=== PATIENT | male | born 1990 | race Caucasian/White ===

== ENCOUNTER 2025-05-29 09:09 | Emergency (ER) | payer BC, SELFPAY ==
--- NOTE | 2025-05-29 09:16 | ED.URI ---
HPI - URI/Sore Throat General Chief Complaint: Upper Respiratory Infection Stated Complaint: Cough Time Seen by Provider: 05/29/25 09:25 Source: patient and RN notes reviewed Mode of arrival: ambulatory Limitations: no limitations History of Present Illness HPI Narrative: 34-year-old male presents concern for nasal congestion, drainage, postnasal drainage, sore throat, cough that started yesterday. Denies fever, body aches, chills, sweats. Tried Sudafed and DayQuil. MD elicited complaint: cough and sore throat Related Data Home Medications ?Medication ?Instructions ?Recorded ?Confirmed ?Last Taken ?Type aripiprazole 2 mg tablet mg 05/29/25 Unknown History escitalopram oxalate 5 mg tablet mg 05/29/25 Unknown History rosuvastatin 10 mg tablet mg 05/29/25 Unknown History semaglutide 2 mg/dose (8 mg/3 mL) mg subcut 05/29/25 Unknown History subcutaneous pen injector (Ozempic) Allergies Allergy/AdvReac Type Severity Reaction Status Date / Time No Known Allergies Allergy Verified 05/29/25 09:13 Review of Systems Review of Systems: CONSTITUTIONAL: Denies malaise, chills, sweats, or fever. EYES: Denies visual changes, redness, or discharge. ENT: Reports rhinorrhea, congestion, and sore throat. CARDIOVASCULAR: Denies chest pain, palpitations, or edema. RESPIRATORY: Reports cough. Denies dyspnea. GASTROINTESTINAL: Denies abdominal pain, nausea, vomiting, diarrhea SKIN: Denies rash or itching. MUSCULOSKELETAL: Denies myalgia. NEUROLOGIC: Denies headache. All systems reviewed & are unremarkable except as noted in HPI and below PMFSH Comments At time of signature, agree with nursing past medical, surgical, social and family history. There is no relevant family history pertinent to the presenting complaint Exam Narrative: GENERAL: Well-appearing, well-nourished, and in no acute distress. HEAD: Normocephalic EYES: PERRLA, conjunctivae clear ENT: Nares clear, turbinates edematous and erythematous, clear discharge. Mucous membranes moist. TM pearly grace with dull light reflex bilaterally; no tragal tenderness. Oropharynx not erythematous without lesions. Tonsils not enlarged and without exudate, no drooling, no hoarseness, no trismus, uvula midline. NECK: Supple. No lymphadenopathy CHEST: Clear to auscultation, breath sounds equal. No wheezing, rhonchi, rales, or stridor. No respiratory distress, speaks in full sentences. HEART: Regular rate and rhythm. No murmur heard. SKIN: Warm, dry, no rash. NEURO: Alert and oriented x3. PSYCH: Normal mood and affect Course Course Level of Care: [facility] Visit MDM Differential Diagnosis Differential Diagnosis: I evaluated this patient in the [facility]. History is obtained from patient who is an independent historian and physical exam was performed.? Available medical records were reviewed. ? Exam findings and relevant testing show no acute concerns or changes; patient is non-toxic appearing and is in no distress. ? Differential diagnosis considered: Orozco virus, strep pharyngitis, allergic rhinitis, upper respiratory tract infection, sinusitis, rhinosinusitis, nasopharyngitis. viral pharyngitis, otitis media, otitis externa, pneumonia, bronchitis, viral cough syndrome, viral syndrome, and influenza. Differential diagnosis and treatment plan were discussed with the patient. Patient agrees with discussion and after shared medical decision making agrees with plan of care. All questions were answered to the patient's satisfaction. Patient is appropriate for outpatient treatment and follow-up. Discharge Plan Discharge Clinical Impression: Upper respiratory infection Patient Disposition: Home Condition: Stable Instructions: Upper Respiratory Infection (ED) Additional Instructions: Your rapid strep swab was negative today at [facility]. A throat culture will be sent to the laboratory for further testing. If the test is positive, you will receive a phone call within 48 hours and an appropriate antibiotic will be initiated at that time. Your symptoms are likely due to a viral illness, which is not treated with antibiotics. Viral symptoms can be present for up to a few weeks. -Alternate Tylenol and Motrin per package directions for fever or pain. -Antihistamine medication such as Benadryl at night and Zyrtec during the day can help improve symptoms. -Eat and drink things that are easy to swallow, like tea or soup, or popsicles to suck on. -Oral rinses such as: Salt water gargles and/or may use topical anesthetic (eg. Chloraseptic spray) or lozenges to relieve dryness or throat pain). -Frequent hand washing or hand group billing coordinator is one of the best ways to prevent spread of infection. -Follow up with primary care provider in 2-3 days if condition is not improving; or seek ER visit if you have trouble breathing, cannot drink enough fluids, have muffled voice, difficulty opening your mouth, or severe swelling. Patient Language: Bengali Prescriptions: New ipratropium bromide 21 mcg (0.03 %) spray,non-aerosol 2 spray NASAL TID PRN (Reason: nasal drainage) Qty: 30 0RF Rx Instructions: administer into each nostril No Action rosuvastatin 10 mg tablet escitalopram oxalate 5 mg tablet aripiprazole 2 mg tablet Ozempic 2 mg/dose (8 mg/3 mL) pen injector SUBCUT Follow-up/Referrals: Court,Yani Gonzalez APRN [Primary Care Provider, [facility]] Time of Disposition: 09:40
[2025-05-29 09:20] VITALS: BP 145/83; PULSE 99; RESP 18; TEMP 36.7; O2SAT 98
[2025-05-29 09:35] LABS: EDSTREPNEGPOS1 Negative (Negative)
--- OUTSIDE RECORDS SUMMARY | 2025-05-29 09:57 | XMS_ITS | Encounter Summary ---
Author Organization [facility] Address [facility] [place] [address] Care Team Providers Care Field Service Consultant Name Role Phone Ashanti Miller BERRY PICKER MACHINE OPERATOR Primary Care Provider Yoselin Morocho MD Primary Care Provider [phone] Yani Yun NP Primary Care Provider [phone] Encounter Details Date Type Department Care Team (Late st Contact Info) Description 01/28/2021 MyCYaphiet Message Enc [facility] Medical Group Family & Internal Medicine [facility] [id number] [place] [address] Ashanti Miller, GROVER RE: Medication Questions Social History Tobacco Use Types Packs/Day Years Used Date Smoking Tobacco: Every Day Cigarettes 0.5 17.9 Started: 2007 Smokeless Tobacco: Never Alcohol Use Standard Drinks/Week Comments Yes 0 (1 standard drink = 0.6 oz pur e alcohol) drinks 1-2 times weekly PHQ-2 Answer Date Recorded PHQ-2 Score - If the patient scores above 3, please move on to questions 3-9 0 12/03/2020 Sex and Gender Information Value Date Recorded Sex Assigned at Male 07/05/2023 8:44 AM PRACTICE NURSE Legal Sex Male 12:11 PM CDT Gender Identity Not on file Sexual Orientation Straight 06/07/2021 1: 16 PM PRACTICE NURSE documented as of this encounter Progress Notes * Estrella Colón RN - 01/28/2021 8:18 AM CDT Please advise. documented in this encounter Plan of Treatment Not on file documented as of this encounter Visit Diagnoses Not on filedocumented in this encounter Additional Health Concerns Assessment Noted Time PHQ-9 Depression Total Score: 0 12/04/19 3:37 PM CDT documented as of this encounter Care Teams Field Service Consultant Relationship Specialty Start Date End Date Ashanti Miller NP PCP - General NURSE PRACTITIONER 11/27/20 04/19/21 [place] [id number] [place] [address] PCP - General FAMILY PRACTICE 04/20/21 08/24/23 [place] [address] [address] [address] PCP - General Nurse Practitioner Family 08/25/23 documented as of this encounter
--- OUTSIDE RECORDS SUMMARY | 2025-05-29 09:57 | XMS_ITS | Encounter Summary ---
Author Organization [facility] Address [facility] [place] [address] Care Team Providers Care Supervisor Poultry Hatchery Name Role Phone Yoselin Pal MD Primary Care Provider [phone] Yani Yun NP Primary Care Provider [phone] Encounter Details Date Type Department Care Team (Late st Contact Info) Description 08/06/2023 CityVoz Message Enc [facility] Medical Group Family & Internal Medicine [facility] [id number] [place] [address] [place] [id number] [place] [address] [place] [address] CGM Social History Tobacco Use Types Packs/Day Years Used Date Smoking Tobacco: Former Cigarettes 2 008 - 07/08/2022 Smokeless Tobacco: Never Alcohol Use Standard Drinks/Week Comments Not Currently 3.3 (1 standard drink = 0.6 oz p ure alcohol) occasionally [facility] Utilities Answer Date Recorded In the past 12 months has e electric, gas, oil, or water company threatened to shut off services in your home? No 07/07/2023 Humiliation, Afraid, Rape, and Kick questionnair e Answer Date Recorded Within the last year, have y ou been afraid of your partner or ex-partner? No 07/07/2023 Within the last year, have y ou been humiliated or emotionally abused in other ways by your partner or ex-partner? No Within the last year, have y ou been kicked, hit, slapped, or otherwise physically hurt by your partner or ex-partner? No 07/07/2023 Within the last year, have y ou been raped or forced to have any kind of sexual activity by your partner or ex-partner? No 07/07/2023 Social Connection and Isolation Panel Answer Date Recorded In a typical week, how many times do you talk on the phone with family, friends, or neighbors? More than three times a week 07/07/2023 How often do you get togethe r with friends or relatives? Three times a week 07/07/2023 How often do you attend chur ch or judaism services? Never 07/07/2023 Do you belong to any clubs o r organizations such as hindu groups, unions, fraternal or athletic groups, or school groups? No 07/07/2023 How often do you attend meet ings of the clubs or organizations you belong to? Never 07/07/2023 Are you , , di vorced, , never , or living with a partner? 07/07/2023 AUDIT-C Answer Date Recorded Q1: How often do you have a drink containing alc ohol? 2-4 times a month 07/07/2023 Q2: How many drinks containi ng alcohol do you have on a typical day when you are drinking? 5 or 6 07/07/2023 Q3: How often do you have si x or more drinks on one occasion? Less than monthly 07/07/2023 Overall Financial Resource Strain (CARDIA) Answe r Date Recorded How hard is it for you to pa y for the very basics like food, housing, medical care, and heating? Not hard at all 07/07/2023 PHQ-2 Answer Date Recorded Patient Health Questionnaire-2 Score 0 07/07/2023 [facility] Occupational Stress Questionnaire Answer Date Recorded Do you feel stress - tense, restless, nervous, or anxious, or unable to sleep at night because your mind is troubled all the time - these days? Not at all 07/07/2023 Exercise Vital Sign Answer Date Recorde d On average, how many days pe r week do you engage in moderate to strenuous exercise (like a brisk walk)? 7 days 07/07/2023 On average, how many minutes do you engage in exercise at this level? 30 min 07/07/2023 Hunger Vital Sign Answer Date Recorded Within the past 12 months, y ou worried that your food would run out before you got the money to buy more. Never true 07/07/19 24 Within the past 12 months, t he food you bought just didn't last and you didn't have money to get more. Never true 07/07/2023 PRAPARE - Transportation Answer Date Re corded In the past 12 months, has l ack of transportation kept you from medical appointments or from getting medications? No 06/27 In the past 12 months, has l ack of transportation kept you from meetings, work, or from getting things needed for daily living? No 07/07/2023 Housing Stability Vital Sign Answer Ramon e Recorded In the last 12 months, was t here a time when you were not able to pay the mortgage or rent on time? No 07/07/2023 In the last 12 months, how many places have you lived? 1 07/07/2023 In the last 12 months, was t here a time when you did not have a steady place to sleep or slept in a senior care (including now)? 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 Answer Date of Assessment Author Status No 07/07/2023 4:23 PM TEAMCENTER CONSULTANT Pina Kumar RN Active * Do you have serious difficulty walking or climbing stairs? Answer Date of Assessment Author Status Yes 07/07/2023 4:23 PM TEAMCENTER CONSULTANT Pina Kumar RN Active * Do you have difficulty dressing or bathing? Answer Date of Assessment Author Status No 07/07/2023 4:23 PM TEAMCENTER CONSULTANT Pina Kumar RN Active * Because of a physical, mental, or emotional condition, do you have difficulty doing errands alone such as visiting a doctor's office or shopping? Answer Date of Assessment Author Status No 07/07/2023 4:23 PM TEAMCENTER CONSULTANT Pina Kumar RN Active documented as of this encounter Mental Status * Because of a physical, mental, or emotional condition, do you have serious difficulty concentrating, remembering, or making decisions? Answer Entry Date Author Status No 07/07/2023 4:23 PM TEAMCENTER CONSULTANT Pina Kumar RN Active documented in this encounter Progress Notes * Yani Yun NP - 08/08/2023 4:52 PM CST I will send an order now! CGM's are great to help with management. CENTER CONSULTANT documented in this encounter Plan of Treatment Not on file documented as of this encounter Visit Diagnoses Diagnosis Type 2 diabetes mellitus with hyperglycemia, unspecified whether [place] [facility] use ([facility])- Primary documented in this encounter Additional Health Concerns Assessment Noted Time PHQ-9 Depression Total Score: 0 12/04/19 21 3:37 PM CDT documented as of this encounter Care Teams Supervisor Poultry Hatchery Relationship Specialty [place] [address] [place] [address] PCP - General FAMILY PRACTICE 04/20/21 08/24/23 [place] [address] [address] [address] PCP - General Nurse Practitioner Family 08/25/23 documented as of this encounter
--- OUTSIDE RECORDS SUMMARY | 2025-05-29 09:57 | XMS_ITS | Encounter Summary ---
Author Organization [facility] Address [facility], [id number] [place] [address] Care Team Providers Care Radio Operator Name Role Phone Ashanti Miller SAP GATHERER Primary Care Provider Yoselin Morocho MD Primary Care Provider [phone] Yani Yun NP Primary Care Provider [phone] Encounter Details Date Type Department Care Team (Late st Contact Info) Description 01/20/2021 PT PALt Message Enc [facility] Medical Group Family & Internal Medicine [address] [address] Ashanti Miller, GR[place] RE: Medication Questions [...] Sex Assigned at Male 07/05/2023 8:44 AM PROPERTY MANAGEMENT COORDINATOR Legal Sex Male 12:11 PM CDT Gender Identity Not on file Sexual Orientation Straight 06/07/2021 1: 16 PM PROPERTY MANAGEMENT COORDINATOR COVID-19 Exposure Response Date Recorded In the last month, have you been in contact with someone who was confirmed or suspected to have Coronavirus / COVID-19? No / Unsure 12/26/2020 7:54 AM CDT documented as of this encounter Plan of Treatment Not on file documented as of this encounter Visit Diagnoses Not on filedocumented in this encounter Additional Health Concerns Assessment Noted Time PHQ-9 Depression Total Score: 0 12/04/19 21 3:37 PM CDT documented as of this encounter Care Teams Radio Operator Relationship Specialty Start Date End Date Ashanti Miller NP PCP - General NURSE PRACTITIONER 11/27/20 04/19/21 [place] [address] [place] [address] PCP - General FAMILY PRACTICE 04/20/21 08/24/23 [place] [address] [place] [address] PCP - General Nurse Practitioner Family 08/25/23 documented as of this encounter
--- OUTSIDE RECORDS SUMMARY | 2025-05-29 09:57 | XMS_ITS | Encounter Summary ---
Author Organization [facility] Address [facility] [place] [address] Care Team Providers Care Sheet Metal Superintendent Name Role Phone Yani Yun NP Primary Care Provider [phone] Encounter Details Date Type Department Care Team (Late st Contact Info) Description 09/13/2024 BlueStacks Message Enc [facility] Medical Group Family & Internal Medicine [facility] [address] [place] [address] [place] [address] [facility] [address] [address] Tests Social History Tobacco Use Types Packs/Day Years Used Date Smoking Tobacco: Former Cigarettes 2 008 - 07/08/2022 Smokeless Tobacco: Never Alcohol Use Standard Drinks/Week Comments Never 0 (1 standard drink = 0.6 oz pur e alcohol) occasionally [facility] Utilities Answer Date Recorded In the past 12 months has [employer], gas, oil, or water [employer] threatened to shut off services in your [...] 07/07/2023 How often do you attend chur or sabianist services? Never 07/07/2023 Do you belong to any clubs o r organizations such as mormon groups, unions, fraternal or athletic groups, or [...] Date Recorded Patient Health Questionnaire-2 Score 0 09/05/2024 [facility] - Occupational Stress Questionnaire Answer [...] place to sleep or slept in a chcf (including now)? 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 Answer Date of Assessment Author Status No 07/07/2023 4:23 PM Pina Miranda RN Active * Do you have serious difficulty walking or climbing stairs? Answer Date of Assessment Author Status Yes 07/07/2023 4:23 PM Pina Miranda RN Active * Do you have difficulty dressing or bathing? Answer Date of Assessment Author Status No 07/07/2023 4:23 PM LUMBER STICKER Zobrist, Pina L, RN Active * Because of a physical, mental, or emotional condition, do you have difficulty doing errands alone such as visiting a doctor's office or shopping? Answer Date of Assessment Author Status No 07/07/2023 4:23 PM Pina Miranda RN Active documented as of this encounter Mental Status * Because of a physical, mental, or emotional condition, do you have serious difficulty concentrating, remembering, or making decisions? Answer Entry Date Author Status No 07/07/2023 4:23 PM Pina Miranda RN Active documented in this encounter Plan of Treatment Not on file documented as of this encounter Visit Diagnoses Not on filedocumented in this encounter Additional Health Concerns Assessment Noted Time PHQ-9 Depression Total Score: 9 09/06/19 25 10:33 AM CDT documented as of this encounter Care Teams Sheet Metal Superintendent Relationship Specialty [place] [address] [address] PCP - General Nurse Practitioner Family 08/25/23 documented as of this encounter
--- OUTSIDE RECORDS SUMMARY | 2025-05-29 09:57 | XMS_ITS | Encounter Summary ---
Author Organization [facility] Address [facility] [place] [address] Care Team Providers Care Urgent Care Name Role Phone Yoselin Pal MD Primary Care Provider [phone] Yani Yun NP Primary Care Provider [phone] Encounter Details Date Type Department Care Team (Late st Contact Info) Description 07/28/2023 TSO3 Message Enc [facility] Medical Group Multispecialty Care - [address] [place] [address] [employer], [facility] Provider Lab Results Social History Tobacco Use Types Packs/Day Years Used Date Smoking Tobacco: Former Cigarettes 2 008 - 07/08/2022 Smokeless Tobacco: Never Alcohol Use Standard Drinks/Week Comments Not Currently 3.3 (1 standard drink = 0.6 oz p ure alcohol) occasionally [facility] Utilities Answer Date Recorded In the past 12 months has [facility] [employer], gas, oil, or water [employer] threatened to shut off services in your [...] How often do you attend chur or zoroastrian services? Never 07/07/2023 Do you belong to any clubs o r organizations such as mu-ism groups, unions, fraternal or athletic groups, or [...] Recorded Patient Health Questionnaire-2 Score 0 07/07/2023 [facility] ional Health - Occupational Stress [...] to sleep or slept in a senior living (including now)? 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 Answer Date of Assessment Author Status No 07/07/2023 4:23 PM GAS PUMPING STATION HELPER Pina Kumar RN Active * Do you have serious difficulty walking or climbing stairs? Answer Date of Assessment Author Status Yes 07/07/2023 4:23 PM Pina Miranda RN Active * Do you have difficulty dressing or bathing? Answer Date of Assessment Author Status No 07/07/2023 4:23 PM GAS PUMPING STATION HELPER Pina Kumar RN Active * Because of [...] documented as of this encounter Care Teams Urgent Care Relationship Specialty [place] [address] [place] [address] PCP - General FAMILY PRACTICE 04/20/21 08/24/23 [place] [address] [place] [address] PCP - General Nurse Practitioner Family 08/25/23 documented as of this encounter
--- OUTSIDE RECORDS SUMMARY | 2025-05-29 09:57 | XMS_ITS | Clinical Summary ---
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 You may also check it throughout the day as needed. 1 kit 07/09/19 24 Active aspirin 81 MG chewable tabletIndications: Type 2 diabetes mellitus with hyperglycemia, unspecified whether international accounting manager insulin use ([facility]),Mixed hyperlipidemia Chew 1 tablet (81 mg total) by mouth daily. 100 tablet 3 07/20/19 24 Active rosuvastatin (CRESTOR) 10 MG tabletIndications: Mixed hyperlipidemia Take 1 tablet (10 mg total) by mouth nightly at bedtime. 90 tablet 3 12/12/19 24 Active escitalopram (LEXAPRO) 5 MG tabletIndications: Bipolar 1 disorder ([facility]) Take 1 tablet (5 mg total) by mouth daily. 90 tablet 2 01/18/20 24 Active Continuous Glucose Sensor (FREESTYLE BRENDA 3 SENSOR) MiscIndications:Ty pe 2 diabetes mellitus with hyperglycemia, unspecified whether international accounting manager insulin use ([facility]) USE DIRECTED EVERY 14 DAYS 6 each 01/31/20 24 Active ARIPiprazole (ABILIFY) 2 MG tabletIndications: Bipolar 1 disorder ([facility]) Take 1 tablet by mouth once daily 30 tablet 01/22/20 25 Active OZEMPIC 2 mg/dose injection (PEN)Indications:T ype 2 diabetes mellitus with hyperglycemia, unspecified whether residential insulin use ([facility]) INJECT 2 MG SUBCUTANEOUSLY ONCE A WEEK . APPOINTMENT REQUIRED FOR FUTURE REFILLS 3 mL 03/11/20 25 Active Active Problems Problem Noted Date Diagnosed Date Bipolar 1 disorder 04/06/2024 Mixed hyperlipidemia 10/03/2023 Type 2 diabetes mellitus wit h hyperglycemia, unspecified whether residential insulin use 07/15/2023 Septic arthritis of knee, right 07/07/2023 Hyperglycemia 07/07/2023 Septic arthritis 07/07/2023 Obesity (BMI 30-39.9) 06/08/2021 Immunizations Immunization Administration Dates Next Due Fluzone 6 Months+ Quad (0.5 mL Prefilled Syringe ) 06/08/2021 Influenza Adult (Generic) 04/20/2023 Tdap (Adacel) 06/08/2021 Social History Tobacco Use Types Packs/Day Years Used Date Smoking Tobacco: Former Cigarettes 2 008 - 07/08/2022 Smokeless Tobacco: Never Tobacco Cessation:Counseling Given: No Alcohol Use Standard Drinks/Week Comments Never 0 (1 standard drink = 0.6 oz pur e alcohol) occasionally [employer] Utilities Answer Date Recorded In the past 12 months has e [employer]) gas, oil, or water [employer] threatened to shut off services in your [...] often do you attend chur ch or holiness services? Never 07/07/2023 Do you belong to any clubs o r organizations such as jewish groups, unions, fraternal or athletic groups, or [...] Recorded Patient Health Questionnaire-2 Score 0 09/05/2024 [facility] - Occupational Stress Questionnaire [...] place to sleep or slept in a jail (including now)? 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 Not on file Not on file Not on f ile Last Filed Vital Signs Vital Sign Reading Time Taken Comments Blood Pressure 122/75 09/05/2024 9:45 AM CDT Pulse 86 09/05/2024 9:45 AM CDT Temperature 36.4 C (97.5 F) 09/05/2024 9:45 AM CDT Respiratory Rate 18 09/05/2024 9:45 AM CDT Oxygen Saturation 97% 09/05/2024 9:45 AM CDT Inhaled Oxygen Concentration - - Weight 103.5 kg (228 lb 3.2 oz) 09/05/2024 9:45 AM CDT Height 170.2 cm (5' 7) 09/05/2024 9:45 AM CDT Body Mass Index 35.74 09/05/2024 9:45 AM CDT Plan of Treatment Health Maintenance Due Date Last Done Comments Hepatitis B Vaccines (1 of 3 - 19+ 3-dose series) 10/26/2007 Pneumococcal Vaccine: Pediatrics (0 to 5 Years) and At-Risk Patients (6 to 49 Years) (1 of 2 - PCV) 10/26/2007 HPV Vaccines (1 - 3-dose SCDM series) 10/26/2015 Annual Physical 06/08/2022 06/08/2021 COVID-19 Vaccine (2 - season) 2025 01/05/2021 Hemoglobin A1C 03/08/2025 09/05/2024, 03/27, 01/18/2024, Additional history exists Influenza Adult (#1) 2025 04/20/2023, 06/08/20 21 Kidney Health Evaluation 09/07/2025 09/07/2024 Lipid Panel 09/07/2025 09/07/2024, 06/27, 07/15/2023, Additional history exists Diabetes: Retinopathy Eye Exam 01/26/2027 01/26/2025, 01/21/2024 DTaP, Tdap and Td Vaccines (2 - Td or Tdap) 06/08/2031 06/08/2021 Hepatitis C 01/17/2054 Postponed from 2006 (Patient Refused) PHQ-2 (Physician [place]) Completed 09/05/2024 Hepatitis A Vaccines Aged Out No long er eligible based on patient's age to complete this topic Meningococcal B Vaccine Aged Out No l onger eligible based on patient's age to complete this topic Meningococcal Vaccine Aged Out No sukhdev vilma eligible based on patient's age to complete this topic RSV Immunizations Under 20 Months Aged Out No longer eligible based on patient's age to complete this topic Procedures Procedure Name Priority Date/Time Associated Diagnosis Comments DIABETIC RETINOPATHY EXAM (NEGATIVE)(SCAN ORDER) Routine 01/26/2025 LIPID PANEL Routine 09/07/2024 7:11 AM CDT Type 2 diabetes mellitus with hyperglycemia, unspecified whether international accounting manager insulin use ([facility]) Other fatigue HEMOGLOBIN, GLYCOSYLATED Routine 09/05/2024 Type 2 diabetes mellitus with hyperglycemia, unspecified whether international accounting manager insulin use ([facility]) from Last 3 Months or Most Recently Relevant to Health Maintenance Results * DIABETIC RETINOPATHY EXAM (NEGATIVE) (01/26/2025) [facility] Scanned SCANNING Final Resu lt [facility] ON[facility] * (ABNORMAL) LIPID PANEL (09/07/2024 7:11 AM CDT) CHOLESTEROL 141 <200.0 MG/DL 09/07/2024 3:41 PM CDT [facility] TRIGLYCERIDES 287(H) <150 MG/DL 09/07/2024 3:41 PM CDT [facility] HDL 35(L) >40.0 MG/DL 09/07/2024 3:41 PM CDT [facility] LDL (CALCULATED) 49 <100 MG/DL 09/07/2024 3:41 PM CDT [facility] NON HDL CHOLESTEROL 106 <130 MG/DL 09/07/2024 3:41 PM CDT [facility] CHOL/HDL RATIO 4.0 0.0 - 4.5 09/07/2024 3:41 PM CDT [facility] VLDL CALCULATION 57(H) 5 - 55 MG/DL 09/07/2024 3:41 PM CDT [facility] LIPID INTERPRETATION 09/07/2024 3:41 PM CDT [facility] Comment: [facility] CONCENSUS REPORT RECOMMENDATIONS: ADULT CHILD LOW RISK: CHOLESTEROL <200 <170 TRIGLYCERIDE <150 --- HDL >=60 --- LDL <100 <110 BORDERLINE: CHOLESTEROL 200-239 170-199 TRIGLYCERIDE 150-199 --- HDL 40-59 --- LDL 100-159 110-129 HIGH RISK: CHOLESTEROL >=240 >=200 TRIGLYCERIDE >=200 --- HDL <40 --- LDL >=160 >=130 09/07/2024 7:11 AM CDT us Yani Yun NP LABORATORY Final Result [facility] [address] [place] [address], [place] [phone] * HEMOGLOBIN, GLYCOSYLATED (09/05/2024) HGB A1C 5.7 % -[id number] [address] DANA 09/05/2024 Yani Yun NP LABORATORY Final Result -[id number] [place] [address], from Last 3 Months or Most Recently Relevant to Health Maintenance Insurance [facility] Advance Directives * Full Code (Latest Code Status on File) Date Activated Date Inactivated Comments 07/07/2023 7:07 PM 07/09/2023 5:43 PM * Full Code Date Activated Date Inactivated Comments 07/07/2023 5:02 PM 07/07/2023 7:07 PM Care Teams Metal Machinist Relationship Specialty Start Date End Date Yani Yun, PROTECTIVE SIGNAL INSTALLER [address] [facility] [address] [address] PCP - General Nurse Practitioner Family 08/25/23
--- OUTSIDE RECORDS SUMMARY | 2025-05-29 09:57 | XMS_ITS | Encounter Summary ---
Author Organization [facility] Address [facility] [place] [address] Care Team Providers Care Assistant Banquet Manager Name Role Phone Yani Yun NP Primary Care Provider Encounter Details Date Type Department Care Team (Late st Contact Info) Description 12/11/2023 [employer] Message Enc [facility] Medical Group Family & Internal Medicine [facility] [address] [place] [address] [place] [address] [facility] [address] [facility] [place] [address] Medications Social History Tobacco Use Types Packs/Day Years Used Date Smoking Tobacco: Former Cigarettes 2 008 - 07/08/2022 Smokeless Tobacco: Never Alcohol Use Standard Drinks/Week Comments Not Currently 0 (1 standard drink = 0.6 oz pur e alcohol) occasionally [facility] Utilities Answer Date Recorded In the past 12 months has [employer], gas, oil, or water [employer] threatened to shut off services in your [...] How often do you attend chur or hindu services? Never 07/07/2023 Do you belong to any clubs o r organizations such as mandaen groups, unions, fraternal or athletic groups, or [...] Date Recorded Patient Health Questionnaire-2 Score 0 09/27/2023 [facility] - [...] place to sleep or slept in a nursing home (including now)? 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 Please send to [facility] on file. Thank you! documented in this encounter Plan of Treatment Not on file documented as of this encounter Visit Diagnoses Not on filedocumented in this encounter Additional Health Concerns Assessment Noted Time PHQ-9 Depression Total Score: 0 12/04/19 21 3:37 PM CDT documented as of this encounter Care Teams Assistant Banquet Manager Relationship Specialty [place] [address] [facility] [address] [place] [address] PCP - General Nurse Practitioner Family 08/25/23 documented as of this encounter
== END 2025-05-29 09:42 | disposition home or self-care (01) ==
PROVIDERS: Emergency Provider Nurse Practitioner; PCP Nurse Practitioner Family
DX: J06.9 Acute upper respiratory infection, unspecified (principal); E78.00 Pure hypercholesterolemia, unspecified; E11.9 Type 2 diabetes mellitus without complications; Z79.85 Long-term (current) use of injectable non-insulin antidiabetic drugs; Z86.14 Personal history of Methicillin resistant Staphylococcus aureus infection
CPT/HCPCS: 87081; 87880; 99203; G0463